=== PATIENT | male | born 1965 | race African-American/Black ===

== ENCOUNTER 2020-05-13 09:08 | Emergency (ER) | payer MEDICAID, MEDICARE ==
[~2020-05-13] VITALS: Ht 190.5 cm; Wt 87.9 kg
[~2020-05-13 09:08] MED LIST: DIVA500T3 PO; PHEN32.46 PO
[2020-05-13 09:10] VITALS: BP 147/95
[2020-05-13] MEDS ORDERED: TETANUS, DIPHTHERIA, PERTUSSIS VAC/PF 0.5ML (>7YR OLD) IM ONE (09:30)
[2020-05-13] MEDS ORDERED: BACITRACIN ZINC OINT UDPKT TOP ONE (09:30)
[2020-05-13] MEDS ORDERED: ACETAMINOPHEN 325MG TABLET PO ONE (09:30)
== END 2020-05-13 10:58 | disposition home or self-care (01) ==
LOC: ER 09:08
DX: S01.111A Laceration without foreign body of right eyelid and periocular area, initial encounter (principal); S00.81XA Abrasion of other part of head, initial encounter; G40.909 Epilepsy, unspecified, not intractable, without status epilepticus; W01.0XXA Fall on same level from slipping, tripping and stumbling without subsequent striking against object, initial encounter; Y93.89 Activity, other specified; Y92.018 Other place in single-family (private) house as the place of occurrence of the external cause
CPT/HCPCS: 70486; 90471; 90715; 99284